=== PATIENT | male | born 1960 | race Caucasian/White ===

== ENCOUNTER 2020-07-25 18:24 | Emergency (ER) | payer MEDICAID ==
[~2020-07-25] VITALS: Ht 167.6 cm; Wt 82.6 kg
[2020-07-25 18:24] VITALS: BP_SYST 112
[2020-07-25 18:54] VITALS: BP_SYST 112
== END 2020-07-25 18:45 ==
LOC: SED 18:24
DX: K94.23 Gastrostomy malfunction (principal); J44.9 Chronic obstructive pulmonary disease, unspecified; E11.9 Type 2 diabetes mellitus without complications
CPT/HCPCS: 99283